=== PATIENT | female | born 1945 | race Asian ===

== ENCOUNTER 2016-07-01 12:29 | Emergency (ER) | payer MEDICARE, BC, OTHER | END 2016-07-01 16:11 | disposition home or self-care (01) | DX: J40 Bronchitis, not specified as acute or chronic (principal); I12.0 Hypertensive chronic kidney disease with stage 5 chronic kidney disease or end stage renal disease; E11.22 Type 2 diabetes mellitus with diabetic chronic kidney disease; N18.6 End stage renal disease; Z79.4 Long term (current) use of insulin; Z79.82 Long term (current) use of aspirin; Z99.2 Dependence on renal dialysis ==

== ENCOUNTER 2016-10-04 09:37 | Outpatient (CLI) | payer MEDICARE, BC, OTHER | END 2016-10-04 09:38 | disposition home or self-care (01) | DX: M16.12 Unilateral primary osteoarthritis, left hip (principal); M25.552 Pain in left hip ==

== ENCOUNTER 2016-10-17 11:07 | Outpatient (CLI) | payer MEDICARE, BC, OTHER | END 2016-10-17 11:08 | disposition home or self-care (01) | DX: Z12.31 Encounter for screening mammogram for malignant neoplasm of breast (principal) ==

== ENCOUNTER 2016-10-22 10:11 | Outpatient (CLI) | payer MEDICARE, BC, OTHER | END 2016-10-22 10:12 | disposition home or self-care (01) | DX: M81.0 Age-related osteoporosis without current pathological fracture (principal) ==

== ENCOUNTER 2016-10-23 14:50 | Outpatient (CLI) | payer MEDICARE, BC, OTHER | END 2016-10-23 14:51 | disposition home or self-care (01) | DX: M79.652 Pain in left thigh (principal) ==

== ENCOUNTER 2017-01-03 09:06 | Outpatient (CLI) | payer MEDICARE, BC, OTHER ==
[2017-01-03 13:47] LABS: BASOPHILS % (AUTO) 0.7 %; EOSINOPHILS # (AUTO) 0.3 10^3/uL (0.0-0.7); EOSINOPHILS % (AUTO) 5.8 %; HCT - HEMATOCRIT 33.1 % (37.0-47.0); HGB - HEMOGLOBIN 11.3 g/dL (12.0-16.0); LYMPHOCYTES % (AUTO) 18.8 %; MEAN CORPUSCULAR HEMOGLOBIN 32.7 pg (27.0-31.0); MEAN CORPUSCULAR HGB CONC 34.2 g/dL (32.0-36.0); MEAN CORPUSCULAR VOLUME 95.6 fL (81.0-99.0); MEAN PLATELET VOLUME 7.9 fL (7.9-10.8); MONOCYTES # (AUTO) 0.5 10^3/uL (0.0-1.0); MONOCYTES % (AUTO) 8.3 %; NEUTROPHILS # (AUTO) 3.7 10^3/uL (1.5-6.6); NEUTROPHILS % (AUTO) 66.4 %; NUCLEATED RED BLOOD CELLS AUTO 0.1 /100WBC; RED BLOOD COUNT 3.46 10^6/uL (4.20-5.40); RED CELL DISTRIBUTION WIDTH 12.2 % (12.0-15.0); UNCORRECTED WHITE BLOOD COUNT 5.5 x10^3/uL; WHITE BLOOD COUNT 5.5 x10^3/uL (4.8-10.8)
[2017-01-03 14:00] LABS: HEMOGLOBIN A1C 0.54 g/dL
[2017-01-03 14:16] LABS: ALBUMIN/GLOBULIN RATIO 0.9 (1.0-2.2); BILIRUBIN,TOTAL 0.4 mg/dL (0.2-1.0); BUN - BLOOD UREA NITROGEN 68 mg/dL (6-20); CALCIUM 8.5 mg/dL (8.5-10.3); CARBON DIOXIDE - CO2 32 mmol/L (21-32); CHLORIDE 95 mmol/L (101-111); CHOLESTEROL 241 mg/dL; CREATININE 3.2 mg/dL (0.4-1.0); GFR - MDRD 14 (>89); GLUCOSE 146 mg/dL (70-100); HDL CHOLESTEROL 40 mg/dL; LDL/HDL RATIO 3.7 (<4.4); POTASSIUM 4.5 mmol/L (3.5-5.0); SODIUM 134 mmol/L (135-145); TOTAL PROTEIN 7.6 g/dL (6.7-8.2); TRIGLYCERIDES 271 mg/dL; VLDL CHOLESTEROL 54 mg/dL
== END 2017-01-03 09:07 | disposition home or self-care (01) ==
LOC: LAB.WCP 09:06
PROVIDERS: ATTEND Family Medicine
DX: E11.9 Type 2 diabetes mellitus without complications (principal)
CPT/HCPCS: 36415; 80053; 80061; 82043; 83036; 85025

== ENCOUNTER 2017-01-28 19:03 | Outpatient (CLI) | payer MEDICARE, OTHER | END 2017-01-28 19:04 | disposition critical access hospital (66) | LOC: EMS 19:03 | PROVIDERS: ATTEND Surgery | DX: R07.81 Pleurodynia (principal); W01.0XXA Fall on same level from slipping, tripping and stumbling without subsequent striking against object, initial encounter; Y93.01 Activity, walking, marching and hiking; Y92.008 Other place in unspecified non-institutional (private) residence as the place of occurrence of the external cause | CPT/HCPCS: A0425; A0429 ==

== ENCOUNTER 2017-01-28 19:21 | Emergency (ER) | payer MEDICARE, OTHER ==
[2017-01-28] MEDS ORDERED: HYDROmorphone 1 MG/ML SYRINGE IVP STA ×2 (20:22→23:40)
[2017-01-28] MEDS ORDERED: HYDROmorphone 1 MG/ML SYRINGE ONE ×2 (20:36→23:49)
[2017-01-28 20:58] LABS: BASOPHILS % (AUTO) 0.6 %; EOSINOPHILS # (AUTO) 0.5 10^3/uL (0.0-0.7); EOSINOPHILS % (AUTO) 6.1 %; HCT - HEMATOCRIT 31.5 % (37.0-47.0); HGB - HEMOGLOBIN 10.8 g/dL (12.0-16.0); LYMPHOCYTES # (AUTO) 1.3 10^3/uL (1.5-3.5); LYMPHOCYTES % (AUTO) 16.8 %; MEAN CORPUSCULAR HEMOGLOBIN 32.8 pg (27.0-31.0); MEAN CORPUSCULAR HGB CONC 34.3 g/dL (32.0-36.0); MEAN CORPUSCULAR VOLUME 95.5 fL (81.0-99.0); MEAN PLATELET VOLUME 7.3 fL (7.9-10.8); MONOCYTES # (AUTO) 0.6 10^3/uL (0.0-1.0); MONOCYTES % (AUTO) 8.1 %; NEUTROPHILS # (AUTO) 5.4 10^3/uL (1.5-6.6); NEUTROPHILS % (AUTO) 68.4 %; RED CELL DISTRIBUTION WIDTH 11.7 % (12.0-15.0); UNCORRECTED WHITE BLOOD COUNT 7.9 x10^3/uL; WHITE BLOOD COUNT 7.9 x10^3/uL (4.8-10.8)
[2017-01-28 21:09] LABS: CREATININE 3.2 mg/dL (0.4-1.0); POTASSIUM 4.7 mmol/L (3.5-5.0)
[2017-01-28 21:42] VITALS: BP 133/55
--- NOTE | 2017-01-28 22:42 | ED Physician Documentation ---
History of Present Illness - Stated complaint Stated Complaint: GLF - RIGHT RIB PAIN - Chief complaint Chief Complaint: General - Additonal information Additional information: Patient is a 71-year-old female who is in her normal state of health today when she is walking to her back bedroom to perform peritoneal dialysis that she does every evening. The patient tripped over her feet and fell to the ground injuring her thoracic spine. She denies any preceding complaints and denies any syncope or presyncope. She denies any injury at this point except her thoracic spine. There is no head, neck, anterior chest abdominal, or extremity pain. She denies any numbness tingling or weakness in her extremities. Review of systems: For pertinent positive and negatives in the review of systems please see the history of present illness, otherwise all other systems have been reviewed and are negative. Dragon disclaimer: Parts of this medical record were created using voice recognition technology. Because of the inherent limitations of this system, occasional same sounding word substitutions do occur and persist despite proofreading. Please read the document for context. Review of Systems Constitutional: denies: Fever, Chills Cardiac: denies: Chest pain / pressure, Palpitations Respiratory: denies: Dyspnea, Cough GI: denies: Abdominal Pain, Abdominal Swelling, Nausea, Vomiting PD PAST MEDICAL HISTORY - Past Medical History Past Medical History: Yes Cardiovascular: Hypertension Respiratory: None Neuro: None Endocrine/Autoimmune: Type 2 diabetes GI: None MEDICAL BILLING SUPERVISOR: None : Dialysis HEENT: None Psych: None Musculoskeletal: None, Gout Derm: None Other Past Medical History: PERITONEAL DIALYSIS Q EVENING... - Past Surgical History Past Surgical History: Yes General: Cholecystectomy, Appendectomy, Colonoscopy /MEDICAL BILLING SUPERVISOR: Hysterectomy Cardiovascular: Cardiac catheterization HEENT: Cataracts - Present Medications Home Medications: Ambulatory Orders Medication Instructions Recorded Confirmed Insulin Glargine,Hum.rec.anlog 5 unit SQ AC 11/13/13 07/01/16 [Lantus Solostar] Furosemide [Lasix] 40 mg PO DAILY 03/27/14 07/01/16 Carvedilol 25 mg PO BID 01/04/16 07/01/16 Aspirin [Adult Low Dose Aspirin EC] 81 mg PO DAILY 07/01/16 07/01/16 Azithromycin [Zithromax] 250 mg PO DAILY #6 tablet 07/01/16 Benzonatate [Tessalon] 200 mg PO TID PRN #14 capsule 07/01/16 Fluticasone [Flonase] 1 spray PO DAILY 07/01/16 07/01/16 Spironolactone 25 mg PO DAILY 07/01/16 07/01/16 hydrALAZINE [Apresoline] 25 mg PO DAILY 07/01/16 07/01/16 Tramadol HCl 50 mg PO Q8HR PRN #20 tablet 01/29/17 - Allergies Allergies/Adverse Reactions: Allergies Allergy/AdvReac Type Severity Reaction Status Date / Time Nnplobj-Avv-Myr Reductase Allergy Unknown Verified 01/28/17 19:31 Inhibitor - Social History Does the pt smoke?: No Smoking Status: Never smoker Does the pt drink ETOH?: No Does the pt have substance abuse?: No - Immunizations Immunizations are current?: Yes - POLST Patient has POLST: No PD ED PE NORMAL - Vitals Vital signs reviewed: Yes - General General: Alert and oriented X 3, No acute distress, Well developed/nourished, Other (Thin female who is alert and oriented and who is in mild distress secondary to thoracic back pain.) - HEENT HEENT: Atraumatic, PERRL, Pharynx benign - Neck Neck: Supple, no meningeal sign, No JVD, No bruit - Cardiac Cardiac: RRR, No murmur - Respiratory Respiratory: No respiratory distress, Clear bilaterally - Abdomen Abdomen: Normal bowel sounds, Non tender, Non distended - Back Back: Other (She has tenderness over approximately T8-T10 area of thoracic spine there is no obvious visual abnormality in this area) - Derm Derm: Normal color, Warm and dry - Extremities Extremities: No deformity, No tenderness to palpate, Normal ROM s pain - Neuro Neuro: Alert and oriented X 3, magnetic resonance imaging director 2-12 intact Results - Vitals Vitals: Vital Signs - 24 hr 01/28/17 01/28/17 01/28/17 19:29 19:34 19:59 Temperature 36.7 C 36.6 C Heart Rate 60 60 60 Respiratory 17 17 17 Rate Blood Pressure 185/61 H 153/54 H 153/82 H O2 Saturation 98 99 100 01/28/17 01/28/17 01/28/17 20:56 21:06 21:41 Temperature Heart Rate 60 55 L Respiratory 16 16 Rate Blood Pressure 156/43 H 133/55 H O2 Saturation 99 97 Oxygen O2 Source Room air - Labs Labs: Laboratory Tests 01/28/17 01/28/17 20:40 20:40 WBC 7.9 RBC 3.30 L Hgb 10.8 L Hct 31.5 L MCV 95.5 MCH 32.8 H MCHC 34.3 RDW 11.7 L Plt Count 219 MPV 7.3 L Neut # 5.4 Lymph # 1.3 L [place] # 0.6 Eos # 0.5 Baso # 0.0 Absolute Nucleated RBC 0.00 Nucleated RBCs 0.0 Sodium 135 Potassium 4.7 Chloride 97 L Carbon Dioxide 28 Anion Gap 10.0 BUN 70 H Creatinine 3.2 H Estimated GFR (MDRD) 14 L Glucose 171 H Calcium 9.0 PD MEDICAL DECISION MAKING - ED course Complexity details: reviewed old records ED course: Patient is a 71-year-old female who presents to the emergency department thoracic back pain after mechanical she is quite clear that there is nothing acutely wrong with her from a medical standpoint. She does have peritoneal dialysis at home we did check her electrolytes here tonight and her potassium is normal. She did have tenderness in the midthoracic spine so CT scan was ordered. The CT scan was read by radiology and I also had a discussion with the radiologist about the reading. He feels that there is an anterior essentially osteoid fracture from T7-T8. Radiographically her spine looks like she has ankylosing spondylitis although she has never been diagnosed with this condition we reviewed her films together and there is no evidence of any vertebral body fracture or any evidence of instability. This was explained to the family. The radiographic findings are essentially consistent with an osteophytic fracture. Neurologically the patient is doing well she was given 2 doses of 0.5 mg Dilaudid here looks and feels better at this point will be discharged home with pain medication. Essentially this is all about pain control. She will watch her symptoms closely follow-up with Dr. dinero if worse. Disposition: To home Clinical impression: 1. Status post mechanical fall with T7 through T8 osteophytic fracture with radiographic evidence what appears to be ankylosing spondylitis. 2. End-stage renal and for peritoneal dialysis peritoneal dialysis-clinically stable Departure - Departure Disposition: 01 Home, Self Care Clinical Impression: Thoracic back pain, Hypokalemia Condition: Good Instructions: ED Sprain Thoracic Spine Prescriptions: Tramadol HCl 50 mg PO Q8HR PRN #20 tablet PRN Reason: Pain
--- NOTE | 2017-01-28 22:55 | CT Preliminary Report ---
Exam: CT Thoracic Spine W/O IMPRESSION: Ankylosing spondylitis with T7-T8 anterior syndesmophyte fracture (AO Spine type B3 hyper extension fracture). [facility] SITE ID: [id number]
--- NOTE | 2017-01-28 22:57 | CT Report ---
EXAM: CT THORACIC SPINE WITHOUT CONTRAST EXAM DATE: 01/28/2017 09:59 PM. CLINICAL HISTORY: Fall, T10 level pain. COMPARISONS: Thoracic spine CT 03/30/2014. TECHNIQUE: Thin-section axial images were acquired of the thoracic spine from C7 to L1 without contra st. Post-processing: Coronal and sagittal reformats. Other: None. In accordance with CT protocol optimization, one or more of the following dose reduction techniques w ere utilized for this exam: automated exposure control, adjustment of mA and/or KV based on patient s ize, or use of iterative reconstructive technique. FINDINGS: Alignment: Stable and normal. No scoliosis or spondylolisthesis. Bones: Patient status post prior cervical laminectomies and fusion. Fusion hardware extends to involv e the T1 and T2 levels. There are flowing anterior syndesmophytes with ankylosis of majority of the t horacic vertebral bodies. There is a linear defect involving the anterior syndesmophyte at the T7-T8 level which is new since prior study. No additional fracture. Disk Levels/Facets: There are flowing syndesmophytes involving posterior aspect of the vertebral bodies with resultant mi ld central canal narrowing at T7-T8, T11-T12, and T12-L1. There is severe2 left neural foraminal narr owing at T7-T8 and moderate left neural foraminal narrowing at T8-T9. Musculature: Normal. No fatty atrophy. Other: There are diffuse vascular calcifications. Pacer device noted. Status post cholecystectomy. IMPRESSION: Ankylosing spondylitis with T7-T8 anterior syndesmophyte fracture (AO Spine type B3 hyper extension fracture). [facility] Referring Provider Line: [phone] SITE ID: [id number]
== END 2017-01-29 00:32 | disposition home or self-care (01) ==
LOC: EDUNIT# → ED 19:21
DX: M54.6 Pain in thoracic spine (principal); E87.6 Hypokalemia; M80.08XA Age-related osteoporosis with current pathological fracture, vertebra(e), initial encounter for fracture; I12.0 Hypertensive chronic kidney disease with stage 5 chronic kidney disease or end stage renal disease; E11.22 Type 2 diabetes mellitus with diabetic chronic kidney disease; N18.6 End stage renal disease; Z99.2 Dependence on renal dialysis; Z79.4 Long term (current) use of insulin; Z79.82 Long term (current) use of aspirin; Z91.81 History of falling
CPT/HCPCS: 36415; 72128; 80048; 85025; 96374; 96376; 99284; J1170

== ENCOUNTER 2017-05-08 09:40 | Outpatient (CLI) | payer MEDICARE, OTHER | END 2017-05-08 09:41 | disposition home or self-care (01) | LOC: LAB.WCP 09:40 | PROVIDERS: ATTEND Physician Assistant Medical | DX: N39.0 Urinary tract infection, site not specified (principal) | CPT/HCPCS: 87086 ==

== ENCOUNTER 2017-07-22 08:00 | Outpatient (CLI) | payer MEDICARE, OTHER ==
[2017-07-22 20:06] LABS: ALBUMIN 3.6 g/dL (3.2-5.5); ALBUMIN/GLOBULIN RATIO 0.9 (1.0-2.2); ALKALINE PHOSPHATASE 68 IU/L (42-121); ALT ALANINE AMINOTRANSFERASE 19 IU/L (10-60); AST ASPARTATE AMINOTRANSFERASE 31 IU/L (10-42); BILIRUBIN,TOTAL 0.3 mg/dL (0.2-1.0); BUN - BLOOD UREA NITROGEN 56 mg/dL (6-20); CALCIUM 8.9 mg/dL (8.5-10.3); CARBON DIOXIDE - CO2 25 mmol/L (21-32); CHLORIDE 97 mmol/L (101-111); CREATININE 3.7 mg/dL (0.4-1.0); GFR - MDRD 12 (>89); GLUCOSE 158 mg/dL (70-100); SODIUM 134 mmol/L (135-145); TOTAL PROTEIN 7.8 g/dL (6.7-8.2)
[2017-07-22 20:15] LABS: CHOL/HDL RATIO 6.1 (<4.4); CHOLESTEROL 213 mg/dL; HDL CHOLESTEROL 35 mg/dL; LDL CHOLESTEROL,CALCULATED 112 mg/dL; LDL/HDL RATIO 3.2 (<4.4); VLDL CHOLESTEROL 66 mg/dL
[2017-07-22 20:53] LABS: HB2 TOTAL 12.4 g/dL; HEMOGLOBIN A1C 0.67 g/dL; HEMOGLOBIN A1C % 7.1 % (4.6-6.2)
== END 2017-07-22 08:01 | disposition home or self-care (01) ==
LOC: LAB.WCP 08:00
PROVIDERS: ATTEND Family Medicine
DX: E78.5 Hyperlipidemia, unspecified (principal); E11.9 Type 2 diabetes mellitus without complications
CPT/HCPCS: 36415; 80053; 80061; 83036; 83721; 84443

== ENCOUNTER 2017-07-24 08:00 | Outpatient (CLI) | payer MEDICARE, OTHER | END 2017-07-24 08:01 | LOC: LAB.WCP 08:00 | PROVIDERS: ATTEND Family Medicine | DX: E78.5 Hyperlipidemia, unspecified (principal) | CPT/HCPCS: 36415; 84132 ==

== ENCOUNTER 2017-10-21 11:31 | Outpatient (CLI) | payer MEDICARE, OTHER ==
--- NOTE | 2017-10-22 16:13 | Mammography Report ---
DIGITAL SCREENING MAMMOGRAM: 10/21/2017 CLINICAL INDICATION: A 72-year-old for screening. COMPARISON: 10/2016, 06/2014, 04/2013, 03/2012, 03/2010. TECHNIQUE: Routine CC and MLO projections were obtained of the breasts. FINDINGS: Parenchymal tissue within both breasts is heterogeneously dense, which may lower the sensitivity of mammography; however, there are no dominant masses, suspicious microcalcifications, or secondary signs of malignancy. In comparison to the previous studies, there are no significant changes. ASSESSMENT: NO MAMMOGRAPHIC EVIDENCE OF MALIGNANCY. NO SIGNIFICANT INTERVAL CHANGES. RECOMMENDATION: Screening mammography is recommended annually. BIRADS category 1 - negative. STANDARD QUALIFYING STATEMENTS: 1. This examination was reviewed with the aid of Computed-Aided Detection (CAD). 2. A negative or benign imaging report should not delay biopsy if clinically suspicious findings are present. Consider surgical consultation if warranted. More than 5% of cancers are not identified by imaging. 3. Dense breasts may obscure an underlying neoplasm. TD: 10/22/2017 16:12
== END 2017-10-21 11:32 | disposition home or self-care (01) ==
LOC: DI.N 11:31
PROVIDERS: ATTEND Family Medicine
DX: Z12.31 Encounter for screening mammogram for malignant neoplasm of breast (principal)
CPT/HCPCS: 77067

== ENCOUNTER 2017-12-05 10:56 | Outpatient (CLI) | payer MEDICARE, OTHER | END 2017-12-05 10:57 | disposition home or self-care (01) | LOC: LAB 10:56 | PROVIDERS: ATTEND Family Medicine | DX: R76.11 Nonspecific reaction to tuberculin skin test without active tuberculosis (principal) | CPT/HCPCS: 36415; 81599; 86480 ==

== ENCOUNTER 2017-12-25 14:43 | Outpatient (CLI) | payer MEDICARE, OTHER ==
[2017-12-25 19:03] LABS: BASOPHILS % (AUTO) 0.6 %; EOSINOPHILS # (AUTO) 0.2 10^3/uL (0.0-0.7); EOSINOPHILS % (AUTO) 3.4 %; HGB - HEMOGLOBIN 10.4 g/dL (12.0-16.0); LYMPHOCYTES # (AUTO) 1.2 10^3/uL (1.5-3.5); MEAN CORPUSCULAR HEMOGLOBIN 32.7 pg (27.0-31.0); MEAN CORPUSCULAR HGB CONC 33.7 g/dL (32.0-36.0); MEAN CORPUSCULAR VOLUME 96.8 fL (81.0-99.0); MEAN PLATELET VOLUME 7.9 fL (7.9-10.8); MONOCYTES # (AUTO) 0.4 10^3/uL (0.0-1.0); MONOCYTES % (AUTO) 8.3 %; NEUTROPHILS # (AUTO) 3.3 10^3/uL (1.5-6.6); NEUTROPHILS % (AUTO) 64.7 %; PLT - PLATELET COUNT 239 10^3/uL (130-450); RED BLOOD COUNT 3.17 10^6/uL (4.20-5.40); RED CELL DISTRIBUTION WIDTH 12.2 % (12.0-15.0); WHITE BLOOD COUNT 5.1 x10^3/uL (4.8-10.8)
[2017-12-25 19:30] LABS: ALBUMIN 3.4 g/dL (3.2-5.5); ALBUMIN/GLOBULIN RATIO 0.8 (1.0-2.2); BILIRUBIN,TOTAL 0.5 mg/dL (0.2-1.0); CALCIUM 8.9 mg/dL (8.5-10.3); CREATININE 3.7 mg/dL (0.4-1.0); TOTAL PROTEIN 7.5 g/dL (6.7-8.2)
== END 2017-12-25 14:44 | disposition home or self-care (01) ==
LOC: LAB.WCP 14:43
PROVIDERS: ATTEND Family Medicine
DX: R76.11 Nonspecific reaction to tuberculin skin test without active tuberculosis (principal)
CPT/HCPCS: 36415; 80053; 85025

== ENCOUNTER 2018-01-02 12:15 | Outpatient (CLI) | payer MEDICARE, OTHER ==
--- NOTE | 2018-01-02 15:47 | XRAY Report ---
Procedure Date: 01/02/2018 Accession Number: [id number] / [id number] Procedure: XR - Chest 2 View X-Ray CPT Code: 55054 FULL RESULT: EXAM: Chest 2 View X-Ray DATE: 01/02/2018 12:32 PM CLINICAL HISTORY: POSITIVE PPD COMPARISON: Chest 12/11/2017. TECHNIQUE: 2 views. FINDINGS: Lungs/Pleura: No focal opacities evident. No pneumothorax or pleural effusion. Normal volumes. Mediastinum: Heart and mediastinal contours are unremarkable. Other: Stable configuration of pacemaker and visualized portion of cervical spinal hardware. IMPRESSION: Stable examination without evidence of acute airspace disease or prior tuberculosis. [facility]
== END 2018-01-02 12:16 | disposition home or self-care (01) ==
LOC: DI 12:15
PROVIDERS: ATTEND Urology
DX: R76.11 Nonspecific reaction to tuberculin skin test without active tuberculosis (principal)
CPT/HCPCS: 71046

== ENCOUNTER 2018-02-24 10:10 | Outpatient (CLI) | payer MEDICARE, OTHER ==
[2018-02-24 13:59] LABS: ALBUMIN 3.8 g/dL (3.2-5.5); BILIRUBIN,TOTAL 0.5 mg/dL (0.2-1.0); CALCIUM 8.9 mg/dL (8.5-10.3); CREATININE 3.1 mg/dL (0.4-1.0); TOTAL PROTEIN 7.7 g/dL (6.7-8.2)
== END 2018-02-24 10:11 ==
LOC: LAB.WCP 10:10
PROVIDERS: ATTEND Family Medicine
DX: R76.11 Nonspecific reaction to tuberculin skin test without active tuberculosis (principal)
CPT/HCPCS: 36415; 80053

== ENCOUNTER 2018-03-26 14:28 | Outpatient (CLI) | payer MEDICARE, OTHER ==
[2018-03-26 19:25] LABS: ALBUMIN 3.4 g/dL (3.2-5.5); ALBUMIN/GLOBULIN RATIO 0.9 (1.0-2.2); BILIRUBIN,TOTAL 0.4 mg/dL (0.2-1.0); CALCIUM 8.8 mg/dL (8.5-10.3); CREATININE 3.9 mg/dL (0.4-1.0); TOTAL PROTEIN 7.1 g/dL (6.7-8.2)
[2018-03-26 19:51] LABS: HEMOGLOBIN A1C 0.47 g/dL; HEMOGLOBIN A1C % 6.9 % (4.6-6.2)
== END 2018-03-26 14:29 | disposition home or self-care (01) ==
LOC: LAB.WCP 14:28
PROVIDERS: ATTEND Family Medicine
DX: E11.9 Type 2 diabetes mellitus without complications (principal)
CPT/HCPCS: 36415; 80053; 83036

== ENCOUNTER 2018-05-26 14:55 | Outpatient (CLI) | payer MEDICARE, OTHER ==
[2018-05-26 19:30] LABS: ALBUMIN 3.5 g/dL (3.2-5.5); BILIRUBIN,TOTAL 0.4 mg/dL (0.2-1.0); CALCIUM 8.5 mg/dL (8.5-10.3); CREATININE 3.5 mg/dL (0.4-1.0); TOTAL PROTEIN 7.1 g/dL (6.7-8.2)
== END 2018-05-26 23:59 | disposition home or self-care (01) ==
LOC: LAB.WCP 14:55
PROVIDERS: ATTEND Family Medicine
DX: R76.11 Nonspecific reaction to tuberculin skin test without active tuberculosis (principal)
CPT/HCPCS: 36415; 80053

== ENCOUNTER 2018-10-27 11:22 | Outpatient (CLI) | payer MEDICARE, OTHER ==
[2018-10-27 18:36] LABS: BILIRUBIN,URINE NEGATIVE (NEGATIVE); GLUCOSE, URINE (UA) NEGATIVE (NEGATIVE); KETONES,URINE (UA) NEGATIVE (NEGATIVE); LEUKOCYTE ESTERASE, URINE TRACE (NEGATIVE); NITRITE,URINE NEGATIVE (NEGATIVE); OCCULT BLOOD,URINE NEGATIVE (NEGATIVE); PH,URINE 5.5 PH (5.0-7.5); PROTEIN,URINE TRACE mg/dL (NEGATIVE); UROBILINOGEN,URINE 0.2 (NORMAL) E.U./dL (NORMAL)
[2018-10-27 18:51] LABS: HEMOGLOBIN A1C 0.73 g/dL; HEMOGLOBIN A1C % 8.2 % (4.6-6.2)
[2018-10-27 18:56] LABS: ALBUMIN 3.3 g/dL (3.2-5.5); ALKALINE PHOSPHATASE 52 IU/L (42-121); ALT ALANINE AMINOTRANSFERASE 15 IU/L (10-60); AST ASPARTATE AMINOTRANSFERASE 29 IU/L (10-42); BILIRUBIN,TOTAL 0.7 mg/dL (0.2-1.0); BUN - BLOOD UREA NITROGEN 47 mg/dL (6-20); CALCIUM 8.1 mg/dL (8.5-10.3); CARBON DIOXIDE - CO2 29 mmol/L (21-32); CHLORIDE 94 mmol/L (101-111); CHOL/HDL RATIO 6.6 (<4.4); CHOLESTEROL 224 mg/dL; CREATININE 4.8 mg/dL (0.4-1.0); GFR - MDRD 9 (>89); GLUCOSE 209 mg/dL (70-100); HDL CHOLESTEROL 34 mg/dL; LDL CHOLESTEROL,CALCULATED 133 mg/dL; LDL/HDL RATIO 3.9 (<4.4); SODIUM 136 mmol/L (135-145); TOTAL PROTEIN 6.6 g/dL (6.7-8.2); VLDL CHOLESTEROL 57 mg/dL
[2018-10-27 19:36] LABS: CLARITY,URINE HAZY (CLEAR)
[2018-10-27 19:44] LABS: BACTERIA,URINE None Seen /HPF (None Seen); RBC,URINE 0-5 /HPF (0-5); SQUAMOUS EPITHELIAL CELL,UR NONE SEEN (<= Few)
== END 2018-10-27 11:23 | disposition home or self-care (01) ==
LOC: LAB.WCP 11:22
PROVIDERS: ATTEND Family Medicine
DX: E11.9 Type 2 diabetes mellitus without complications (principal); R60.9 Edema, unspecified
CPT/HCPCS: 36415; 80053; 80061; 81001; 83036; 83721

== ENCOUNTER 2018-11-05 11:20 | Outpatient (CLI) | payer MEDICARE, OTHER ==
--- NOTE | 2018-11-06 09:19 | Mammography Report ---
Reason: SCREENING MAMMO Procedure Date: 11/05/2018 Accession Number: [id number] / [id number] Procedure: MGN - Screening Mammo Dig Bilat CPT Code: FULL RESULT: EXAM: Screening Mammo Dig Bilat DATE: 11/05/2018 11:53 AM CLINICAL HISTORY: Screening encounter. No reported risk factors. TECHNIQUE: (B) - Bilateral CC and MLO views were obtained. Limited ability to position the patient, best possible images are obtained. COMPARISON: 10/21/2017 through 04/27/2013. PARENCHYMAL PATTERN: (D) - The breast(s) demonstrate(s) heterogeneously dense fibroglandular parenchyma. FINDINGS: Extensive typically benign vascular calcifications are redemonstrated. There are no suspicious masses, calcifications, or areas of distortion. IMPRESSION: Benign findings. BI-RADS category 2. RECOMMENDATION: (ANNUAL) - Recommend routine annual screening mammography. BI-RADS CATEGORY: (2) - Benign Findings. STANDARD QUALIFYING STATEMENTS: 1. This examination was not reviewed with the aid of Computer-Aided Detection (CAD). 2. A negative or benign imaging report should not preclude biopsy if clinically suspicious findings are present. 3. Dense breasts may obscure an underlying neoplasm. 4. This examination was reviewed without the aid of 3D breast imaging (tomosynthesis).
== END 2018-11-05 11:21 | disposition home or self-care (01) ==
LOC: DI.N 11:20
DX: Z12.31 Encounter for screening mammogram for malignant neoplasm of breast (principal)
CPT/HCPCS: 77067

== ENCOUNTER 2018-12-12 11:22 | Emergency (ER) | payer MEDICARE, OTHER ==
--- NOTE | 2018-12-12 12:07 | XRAY Report ---
Reason: productive cough, fatigue. Procedure Date: 12/12/2018 Accession Number: [id number] / [id number] Procedure: XR - Chest 2 View X-Ray CPT Code: 20234 FULL RESULT: EXAM: CHEST RADIOGRAPHY EXAM DATE: 12/12/2018 11:47 AM. CLINICAL HISTORY: Productive cough, fatigue. COMPARISON: CHEST 2 VIEW 01/02/2018 12:21 PM. TECHNIQUE: 2 views. FINDINGS: Lungs/Pleura: There is a new left pleural effusion, small to moderate in size. Evaluation of the left lung bases partially obscured with suggestion of airspace opacities at the left lung base, atelectasis versus airspace disease. Right lung is clear. Aerated left mid and upper lung is unremarkable. No pneumothorax. Mediastinum: Despite similar PA and lateral technique, there has been interval enlargement of the cardiac silhouette. Tortuous aorta with calcified arch is similar to prior. Other: Pacemaker configuration is essentially unchanged. Cervical fusion hardware is incompletely characterized. IMPRESSION: Interval cardiac enlargement and development of a left pleural effusion with left basilar airspace opacities. [facility]
--- NOTE | 2018-12-12 12:29 | ED Physician Documentation ---
PD HPI URI - Stated complaint Stated Complaint: COUGH/CONGESTED - Chief complaint Chief Complaint: Resp - History obtained from History obtained from: Patient - History of Present Illness Timing - onset: Other (73yo with CKD on PD, HTN, DM with 1 week cough assoc with weakness/fatigue. No dyspnea. No fevers.) Review of Systems Constitutional: denies: Fever, Chills Nose: denies: Rhinorrhea / runny nose, Congestion Throat: denies: Sore throat Respiratory: reports: Cough. denies: Dyspnea PD PAST MEDICAL HISTORY - Past Medical History Cardiovascular: Hypertension Respiratory: None Endocrine/Autoimmune: Type 2 diabetes GI: None INVESTMENT SALES ASSISTANT: None : Dialysis HEENT: None Psych: None Musculoskeletal: None, Gout Derm: None - Past Surgical History Past Surgical History: Yes General: Cholecystectomy, Appendectomy, Colonoscopy /INVESTMENT SALES ASSISTANT: Hysterectomy Cardiovascular: Cardiac catheterization HEENT: Cataracts - Present Medications Home Medications: Ambulatory Orders Medication Instructions Recorded Confirmed Insulin Glargine,Hum.rec.anlog 5 unit SQ AC 11/13/13 07/01/16 [Lantus Solostar] Furosemide [Lasix] 40 mg PO DAILY 03/27/14 07/01/16 Carvedilol 25 mg PO BID 01/04/16 07/01/16 Aspirin [Adult Low Dose Aspirin EC] 81 mg PO DAILY 07/01/16 07/01/16 Azithromycin [Zithromax] 250 mg PO DAILY #6 tablet 07/01/16 Benzonatate [Tessalon] 200 mg PO TID PRN #14 capsule 07/01/16 Fluticasone [Flonase] 1 spray PO DAILY 07/01/16 07/01/16 Spironolactone 25 mg PO DAILY 07/01/16 07/01/16 hydrALAZINE [Apresoline] 25 mg PO DAILY 07/01/16 07/01/16 Tramadol HCl 50 mg PO Q8HR PRN #20 tablet 01/29/17 Azithromycin [Zithromax] 1 tab PO DAILY #6 tablet 12/12/18 Cephalexin [Keflex] 500 mg PO BID #14 capsule 12/12/18 Potassium Chloride 20 meq PO DAILY #7 tab.er.prt 12/12/18 - Allergies Allergies/Adverse Reactions: Allergies Allergy/AdvReac Type Severity Reaction Status Date / Time Vaetjdk-Tlo-Jyo Reductase Allergy Unknown Verified 12/12/18 11:34 Inhibitor - Social History Does the pt smoke?: No Smoking Status: Never smoker Does the pt drink ETOH?: No Does the pt have substance abuse?: No - Immunizations Immunizations are current?: Yes - POLST Patient has POLST: No PD ED PE NORMAL - Vitals Vital signs reviewed: Yes - General General: Alert and oriented X 3, No acute distress - HEENT HEENT: PERRL, EOMI - Neck Neck: Supple, no meningeal sign, No bony TTP - Cardiac Cardiac: RRR, No murmur - Respiratory Respiratory: No respiratory distress, Other (exp rhonchi, decreased, rosemary L base.) - Abdomen Abdomen: Normal bowel sounds, Soft, Non tender - Neuro Neuro: Alert and oriented X 3, Normal speech - Psych Psych: Normal mood, Normal affect Results - Vitals Vitals: Vital Signs - 24 hr 12/12/18 11:32 Temperature 36.4 C L Heart Rate 59 L Respiratory 18 Rate Blood Pressure 119/75 O2 Saturation 99 Oxygen O2 Source Room air - Labs Labs: Laboratory Tests 12/12/18 12/12/18 12/12/18 12:40 12:40 12:40 WBC 6.3 RBC 3.97 L Hgb 12.2 Hct 37.3 MCV 94.0 MCH 30.7 MCHC 32.7 RDW 13.5 Plt Count 202 MPV 10.5 Neut # (Auto) 4.6 Lymph # (Auto) 1.2 L [place] # (Auto) 0.4 Eos # (Auto) 0.0 Baso # (Auto) 0.0 Absolute Nucleated RBC 0.00 Nucleated RBC % 0.0 Sodium 138 Potassium 2.2 L* Chloride 94 L Carbon Dioxide 28 Anion Gap 16.0 H BUN 32 H Creatinine 4.8 H Estimated GFR (MDRD) 9 L Glucose 165 H Lactic Acid 1.2 Calcium 7.4 L Total Bilirubin 0.8 AST 30 ALT 15 Alkaline Phosphatase 64 Total Protein 6.9 Albumin 2.9 L Globulin 4.0 Albumin/Globulin Ratio 0.7 L Lipase 27 - Rads (name of study) 2v chest Radiology: EMP read contemporaneously (New cardiomegaly with L base PNA and effusion) PD MEDICAL DECISION MAKING - ED course ED course: 73-year-old woman on peritoneal dialysis presents with a nickel and radiographic findings of pneumonia. She does not appear ill. Labs are only notable for a potassium of 2.2. Case discussed by phone with her electrical contractor, Dr. Sunshine who agrees with 40 mEq orally now and 20 mEq once a day for the next week and follow-up with repeat labs within the week. The antibiotics were renally dosed. Departure - Departure Disposition: Home, Self Care Clinical Impression: End stage renal disease, Hypokalemia Pneumonia Qualifiers: Pneumonia type: due to unspecified organism Laterality: left Lung location: lower lobe of lung Qualified Code(s): J18.1 - Lobar pneumonia, unspecified organism Condition: Good Record reviewed to determine appropriate education?: Yes Health Concerns: cough, pna Plan of Treatment: Follow-up with your primary care physician in 2 to 3 days for recheck. Note that since her last x-ray in December of last year your heart has become more enlarged. You also have a left lower lobe pneumonia with pleural effusion, she will want to get serial x-rays on this to make sure it is resolving. Return if worsening. Also note that your potassium today is 2.2. We administered 40 mEq orally today and given you a prescription for 20 mEq a day for the next week. He will need to see Dr. Sunshine in follow-up next week for recheck and repeat labs. Care Goals: Improved pneumonia and low potassium Assessment: as above Instructions: ED Pneumonia Adult Prescriptions: Azithromycin [Zithromax] 1 tab PO DAILY #6 tablet Cephalexin [Keflex] 500 mg PO BID #14 capsule Potassium Chloride 20 meq PO DAILY #7 tab.er.prt
[2018-12-12 12:48] LABS: BASOPHILS % (AUTO) 0.3 %; EOSINOPHILS % (AUTO) 0.3 %; HGB - HEMOGLOBIN 12.2 g/dL (12.0-16.0); LYMPHOCYTES # (AUTO) 1.2 10^3/uL (1.5-3.5); LYMPHOCYTES % (AUTO) 19.3 %; MEAN CORPUSCULAR HEMOGLOBIN 30.7 pg (27.0-31.0); MEAN CORPUSCULAR HGB CONC 32.7 g/dL (32.0-36.0); MEAN PLATELET VOLUME 10.5 fL (7.9-10.8); MONOCYTES # (AUTO) 0.4 10^3/uL (0.0-1.0); MONOCYTES % (AUTO) 6.3 %; NEUTROPHILS # (AUTO) 4.6 10^3/uL (1.5-6.6); NEUTROPHILS % (AUTO) 73.5 %; PLT - PLATELET COUNT 202 10^3/uL (130-450); RED BLOOD COUNT 3.97 10^6/uL (4.20-5.40); RED CELL DISTRIBUTION WIDTH 13.5 % (12.0-15.0); WHITE BLOOD COUNT 6.3 x10^3/uL (4.8-10.8)
[2018-12-12 13:03] LABS: ALBUMIN 2.9 g/dL (3.2-5.5); ALBUMIN/GLOBULIN RATIO 0.7 (1.0-2.2); BILIRUBIN,TOTAL 0.8 mg/dL (0.2-1.0); CALCIUM 7.4 mg/dL (8.5-10.3); CREATININE 4.8 mg/dL (0.4-1.0); TOTAL PROTEIN 6.9 g/dL (6.7-8.2)
[2018-12-12] MEDS ORDERED: POTASSIUM CHLORIDE 20 MEQ TABLET PO STA (13:14)
[2018-12-12 13:47] VITALS: BP 124/68
== END 2018-12-12 13:48 | disposition home or self-care (01) ==
LOC: ED 11:22
DX: J18.1 Lobar pneumonia, unspecified organism (principal); E87.6 Hypokalemia; I12.0 Hypertensive chronic kidney disease with stage 5 chronic kidney disease or end stage renal disease; E11.22 Type 2 diabetes mellitus with diabetic chronic kidney disease; N18.6 End stage renal disease; Z99.2 Dependence on renal dialysis; Z79.4 Long term (current) use of insulin; Z79.82 Long term (current) use of aspirin
CPT/HCPCS: 36415; 71046; 80053; 83605; 83690; 85025; 99283; A9270